=== PATIENT | male | born 1970 | race Caucasian/White ===

== ENCOUNTER 2018-08-08 18:13 | Emergency (ER) | payer BC ==
--- NOTE | 2018-08-08 20:09 | ED ---
GI/ HPI - HPI Summary HPI Summary: 48 year old male presents with right groin pain for the past week. He states that yesterday he has had intermittent pain in his groin that radiates into his abd. States was a cough or when he lifts something pain is worst. States pain has radiates to his flank. Denies any nausea vomiting diarrhea. Denies any fevers. Denies any chest pain or shortness of breath. Denies any urinary symptoms. No hematuria. never had this before. - History of Current Complaint Chief Complaint: EDAbdPain Time Seen by Provider: 08/08/18 19:52 Stated Complaint: RT LOWER ABD PAIN PER PT Pain Intensity: 4 - Allergy/Home Medications Allergies/Adverse Reactions: Allergies Allergy/AdvReac Type Severity Reaction Status Date / Time Penicillins Allergy Unknown Unknown Verified 08/08/18 18:34 Reaction Details PMH/Surg Hx/FS Hx/Imm Hx Endocrine/Hematology History: Denies: Hx Diabetes Cardiovascular History: Denies: Hx Hypertension, Hx Pacemaker/ICD History: Denies: Hx Renal Disease Sensory History: Denies: Hx Hearing Aid Psychiatric History: Denies: Hx Panic Disorder - Surgical History Surgery Procedure, Year, and Place: LEFT ANKLE, LEFT ELBOW Infectious Disease History: No Infectious Disease History: Denies: Traveled Outside the [place] in Last 30 Days - Family History Known Family History: Positive: Hypertension, Diabetes - Social History Alcohol Use: None Substance Use Type: Reports: None Smoking Status (MU): Current Every Day Smoker Type: Cigarettes Amount Used/How Often: 1 PPD Review of Systems Negative: Fever Negative: Chest Pain Negative: Shortness Of Breath Positive: Abdominal Pain. Negative: Vomiting, Diarrhea, Nausea Negative: dysuria All Other Systems Reviewed And Are Negative: Yes Physical Exam Triage Information Reviewed: Yes Vital Signs On Initial Exam: Initial Vitals Temp Pulse Resp BP Pulse Ox 98.8 F 98 16 168/98 97 08/08/18 18:23 08/08/18 18:23 08/08/18 18:23 08/08/18 18:23 08/08/18 18:23 Vital Signs Reviewed: Yes Appearance: Positive: Well-Appearing Skin: Positive: Warm, Dry Head/Face: Positive: Normal Head/Face Inspection Eyes: Positive: Normal, Conjunctiva Clear ENT: Positive: Pharynx normal Respiratory/Lung Sounds: Positive: Clear to Auscultation, Breath Sounds Present Cardiovascular: Positive: Normal, RRR Abdomen Description: Positive: Soft, Other: - nontender abd, nontender groin. Negative: CVA Tenderness (R) Bowel Sounds: Positive: Present Musculoskeletal: Positive: Normal Neurological: Positive: Normal Psychiatric: Positive: Normal Diagnostics - Vital Signs Vital Signs Temp Pulse Resp BP Pulse Ox 08/08/18 18:23 98.8 F 98 16 168/98 97 - Laboratory Result Diagrams: 08/08/18 20:16 08/08/18 20:16 Lab Statement: Any lab studies that have been ordered have been reviewed, and results considered in the medical decision making process. - Ultrasound No standard instances Ultrasound Interpretation Completed By: Radiologist Summary of Ultrasound Findings: IMPRESSION: No evidence of an inguinal hernia. No mass or other abnormality. Re-Evaluation - Re-Evaluation First Eval Re-Evaluation Time: 20:52 Comment: nontender abd still Second Eval Re-Evaluation Time: 22:15 Change: Unchanged Comment: nontender abd GIGU Course/Dx - Course Course Of Treatment: 48 year old male presents with right groin pain for the past week. He states that yesterday he has had intermittent pain in his groin that radiates into his abd. States was a cough or when he lifts something pain is worst. States pain has radiates to his flank. Denies any nausea vomiting diarrhea. Denies any fevers. Denies any chest pain or shortness of breath. Denies any urinary symptoms. No hematuria. never had this before. On exam nontender abdomen. nontender groin. no hernia felt. wbc 13. crp elevated. repeat exam nontender abd. u/s shows no acute findings. discussed that do not feel a hernia but could have one in area. has nontender abd so low suspect of appendicitis at this time. told if develop persistent pain in RLQ to return. told follow up with primary and avoid lifting anything heavy. patient understand and agrees with plan. - Diagnoses Differential Diagnoses - Male: Appendicitis, Incarcerated Hernia, Urinary Tract Infection Provider Diagnoses: Abdominal pain Discharge - Sign-Out/Discharge Documenting (check all that apply): Patient Departure Patient Received Moderate/Deep Sedation with Procedure: No - Discharge Plan Condition: Good Disposition: HOME Patient Education Materials: Abdominal Pain (ED) Referrals: [facility] [Outside] Additional Instructions: Take ibuprofen or Tylenol for pain as needed every 6 hours Establish care with primary Return to ED if develop fever, vomiting, persistent pain in right lower quadrant , or any new or worsening symptoms - Billing Disposition and Condition Condition: GOOD Disposition: Home
[2018-08-08 20:25] LABS: ABS Basophils 0.1 10^3/ul (0-0.2); ABS Eosinophils 0.5 10^3/ul (0-0.6); ABS Lymphocytes 2.3 10^3/ul (1.0-4.8); ABS Monocytes 1.2 10^3/ul (0-0.8); ABS Neutrophils 9.2 10^3/ul (1.5-7.7); Eosinophil % 3.9 %; Hematocrit 45 % (42-52); Hemoglobin 15.9 g/dL (14.0-18.0); Lymphocyte % 17.5 %; Mean Corpuscular HGB Conc 35 g/dL (31-36); Mean Corpuscular Hemoglobin 30 pg (27-31); Mean Corpuscular Volume 86 fL (80-94); Mean Platelet Volume 8.1 fL (7.4-10.4); Nucleated Red Blood Cells % 0.1; Platelet Count 247 10^3/uL (150-450); Red Blood Count 5.27 10^6 /uL (4.18-5.48); Red Cell Distribution Width 14 % (10-15); White Blood Count 13.3 10^3/uL (3.5-10.8)
[2018-08-08 20:42] LABS: Albumin 4.4 g/dL (3.2-5.2); Albumin/Globulin Ratio 1.3 (1-3); BUN/Creatinine Ratio 18.3 (8-20); C Reactive Protein 15.86 mg/L (<8.01); Calcium 9.3 mg/dL (8.6-10.3); EGFR African American 104.5 (>60); EGFR Non-African American 86.4 (>60); Globulin 3.3 g/dL (2-4); Potassium 4.1 mmol/L (3.5-5.0); Total Bilirubin 0.5 mg/dL (0.2-1.0); Total Protein 7.7 g/dL (6.4-8.9)
[2018-08-08 21:23] LABS: Urine Appearance Clear; Urine Bilirubin Negative (Negative); Urine Blood Negative (Negative); Urine Color Yellow; Urine Glucose Negative (Negative); Urine Ketones Negative (Negative); Urine Nitrite Negative (Negative); Urine Protein Negative (Negative); Urine Specific Gravity 1.023 (1.010-1.030); Urine Urobilinogen Negative (Negative)
[2018-08-08 22:45] VITALS: BP 125/90
== END 2018-08-08 22:43 | disposition home or self-care (01) ==
LOC: ED 18:13
DX: R10.31 Right lower quadrant pain (principal); F17.210 Nicotine dependence, cigarettes, uncomplicated
CPT/HCPCS: 36415; 76705; 80053; 81003; 83690; 85025; 86140; 99282